=== PATIENT | female | born 1950 | race Asian ===

== ENCOUNTER → 2016-12-27 | Outpatient (CLI) | payer OTHER, MEDICAID ==
[~2016-12-27] MED LIST: LIDOCAINE 1% 300 MG/30 ML SDV ONE
== END ==
LOC: FIMAGING 09:49
PROC: 0G9K3ZZ Drainage of Thyroid Gland, Percutaneous Approach (ICD-10-PCS; principal; 2016-12-27)
DX: E04.1 Nontoxic single thyroid nodule (principal)

== ENCOUNTER → 2017-12-29 | Outpatient (CLI) | payer OTHER, MEDICAID | LOC: FIMAGING 09:20 | DX: Z12.31 Encounter for screening mammogram for malignant neoplasm of breast (principal); M81.0 Age-related osteoporosis without current pathological fracture; Z78.0 Asymptomatic menopausal state ==